=== PATIENT | female | born 1955 | race Caucasian/White ===

== ENCOUNTER 2022-10-12 06:57 | Day surgery (SDC) | payer MEDICARE ==
[2022-10-12] VITALS (11 sets, daily range): BP systolic 119–131; BP diastolic 51–82; PULSE 64–73; TEMP 97.9
[~2022-10-12] VITALS: Ht 165.1 cm; Wt 54.4 kg
[2022-10-12 08:12] LABS: MEAN CELL VOLUME 96 fl (80.0-100.0); MEAN CORPUSCULAR HGB CONC 34 g/dl (33.0-37.0); MEAN PLATELET VOLUME 9.7 fl (7.4-10.4); PLATELET COUNT 471 K/mm3 (130-400); RED BLOOD COUNT 2.83 M/mm3 (4.10-5.30); REDCELL DISTRIBUTION WIDTH-CV 14.9 % (11.5-14.5)
[2022-10-12] MEDS ORDERED: ASPIRIN 81M81 MG/TA2 PO (08:15)
[2022-10-12] MEDS ORDERED: TOPROL XL 25MG25 MG PO (08:16)
[2022-10-12] MEDS ORDERED: NEXIUM 20MG20 MG PO (08:16)
[2022-10-12 08:18] LABS: HEMATOCRIT 27.2 % (37.0-47.0); HEMOGLOBIN 9.1 g/dl (12.5-16.0); MEAN CORPUSCULAR HEMOGLOBIN 32 pg (27-31)
[2022-10-12 08:25] LABS: CALCIUM 9.6 mg/dL (8.4-10.2); CREATININE, serum 0.75 mg/dL (0.57-1.11); POTASSIUM 4.6 mmol/L (3.5-4.5); PROTHROMBIN TIME 11.8 SECONDS (9.7-12.8)
--- NOTE | 2022-10-12 09:12 | NUR ---
SEE MERGE FOR ALL MEDICATIONS, VITAL SIGNS AND INTERVENTIONS.
--- NOTE | 2022-10-12 13:43 | NUR ---
Pt's right radial TR band was placed at 0935. at 1145 I began the process of deflating her band by 2 ml at a time. upon removing 2 ml for the first time, her radial access point began to bleed under the TR band. I immediatley reinflated the TR band with the 2 ml that I had removed and the bleeding stopped right away. Because of this, I did not attempt to pull air again for 40 minutes. At 1225 I pulled an initial 2 mls and no bleeding occured. I will continue to monitor the radial access point for bleeding as more air is pulled from the TR band. No further interventions required at this time.
[2022-10-12] MEDS ORDERED: LIPITOR 80MG80 MG PO (14:12)
[2022-10-12] MEDS ORDERED: NITRO-DUR0.2 MG/PAT TD (14:13)
--- NOTE | 2022-10-12 14:38 | NUR ---
pt discharged at approx 1430. she was taken to the main lobby via wheelchair and was driven home by her sister. she verbalized an understanding of her discharge instructions. before leaving pt verbalized that she would not begin taking her newly prescribed Atorvastatin until she talked to her FOOD SCIENCE TECHNICIAN at her cardiology follow-up appointment, I attempted to educate her about the benefits and importance of beginning her prescribed meds right away but she was still refusing to begin them at time of discharge. her wrist was free from bleeding and oozing at time of discharge but there was some blue discoloration at the cath insertion site that had been present since returning from the operation. she was free from concerns and questions at time of discharge. I instructed her to monitor the bruising for any worsening within the next 24 hours. her TR band was deflated 2 ml at a time starting at 1225, pt tolerated this well and her VS remained within normal limits during. she also tolerated po fluids and ice chips throughout entire recovery period.
== END 2022-10-12 14:30 | disposition home or self-care (01) ==
LOC: COL.CAR 06:57
PROVIDERS: Internal Medicine Cardiovascular Disease
DX: I25.10 Atherosclerotic heart disease of native coronary artery without angina pectoris (principal); I65.23 Occlusion and stenosis of bilateral carotid arteries; R06.09 Other forms of dyspnea; R55 Syncope and collapse; F17.210 Nicotine dependence, cigarettes, uncomplicated; F10.90 Alcohol use, unspecified, uncomplicated; Z28.310 Unvaccinated for COVID-19
CPT/HCPCS: C1769; J1644; J2250; J3010; Q9967